=== PATIENT | female | born 1990 | race Asian ===

== ENCOUNTER 2017-07-31 10:51 | Inpatient (IN) | payer SELFPAY ==
[~2017-07-31] VITALS: Ht 167 cm; Wt 72.6 kg
[2017-08-01] MEDS ORDERED: PNV1TABL8 PO (00:18)
[2017-08-01] MEDS ORDERED: IBUPROFEN 800 MG TAB PO PRN (00:20)
[2017-08-01] MEDS ORDERED: OXYTOCIN 20 UNITS in LACTATED RINGERS 1,000 ML IV SCH (00:45)
[2017-08-01] MEDS ORDERED: LACTATED RINGERS 1,000 ML IV SCH (00:45)
[2017-08-01] MEDS ORDERED: OXYTOCIN 10 UNITS/ML VIAL IM SCH (01:00)
[2017-08-01 01:05] LABS: BASOPHILS # (AUTO) 0.1 K/uL (0.00-0.22); BASOPHILS % (AUTO) 1.1 % (0.0-2.0); EOSINOPHILS # (AUTO) 0.1 K/uL (0-0.4); EOSINOPHILS % (AUTO) 0.9 % (0.0-4.0); HEMATOCRIT 32.6 % (36-48); HEMOGLOBIN 10.7 g/dL (12.0-16.0); LYMPHOCYTES # (AUTO) 1.7 K/uL (2.5-16.5); LYMPHOCYTES % (AUTO) 21.5 % (20.5-51.1); MEAN CORPUSCULAR HEMOGLOBIN 29 pg (27-31); MEAN CORPUSCULAR HGB CONC 33 g/dL (33-37); MEAN CORPUSCULAR VOLUME 88 fL (80-94); MONOCYTES # (AUTO) 0.8 K/uL (0.8-1.0); MONOCYTES % (AUTO) 9.7 % (1.7-9.3); NEUTROPHILS # (AUTO) 5.3 K/uL (1.8-7.7); NEUTROPHILS % (AUTO) 66.8 % (42.2-75.2); PLATELET COUNT (AUTO) 192 K/uL (140-450); RED CELL DISTRIBUTION WIDTH 13.8 % (11.6-13.7)
[2017-08-01 01:19] LABS: APPEARANCE,URINE CLEAR (CLEAR); BILIRUBIN,URINE NEGATIVE (NEGATIVE); BLOOD, URINE TRACE-L (NEGATIVE); COLOR,URINE YELLOW (YELLOW); LEUKOCYTE ESTERASE ,URINE 1+ (NEGATIVE); NITRITE, URINE NEGATIVE (NEGATIVE); PH,URINE 6.5 (5.0-9.0); UGLUCOSE NEGATIVE (NEGATIVE)
[2017-08-01] MEDS ORDERED: MISOPROSTOL 25 MCG TAB ONE ×2 (01:21→04:12)
[2017-08-01 01:25] LABS: ALBUMIN 2.6 g/dL (3.4-5.0); ANION GAP 15.8 (8-16); CARBON DIOXIDE 22.6 mmol/L (21-32); CREATININE 0.6 mg/dL (0.6-1.3); POTASSIUM 3.4 mmol/L (3.5-5.1); TOTAL BILIRUBIN 0.3 mg/dL (0.0-1.0)
[2017-08-01 01:31] LABS: RBC,URINE 0-5 (RARE) /HPF (0-5)
[2017-08-01] MEDS ORDERED: MISOPROSTOL 25 MCG TAB PO SCH (04:00)
[2017-08-01] MEDS ORDERED: ROPIVACAINE 0.2%/NS PREMIX 250 ML EPI ONE (06:47)
[2017-08-01] MEDS ORDERED: TERBUTALINE 1 MG/ML VIAL SUBQ ONE (11:33)
[2017-08-01] MEDS ORDERED: OXYTOCIN 10 UNITS/ML VIAL ONE (11:37)
[2017-08-01] MEDS ORDERED: METHYLERGONOVINE 0.2 MG/ML AMP IM PRN (11:40)
[2017-08-01] MEDS ORDERED: MEASLES, MUMPS, AND RUBELLA 1 VIAL SQVAC PRN (11:40)
[2017-08-01] MEDS ORDERED: BENZOCAINE/MENTHOL 20%-0.5% 60 GM CAN TP PRN (11:40)
[2017-08-01] MEDS ORDERED: SODIUM PHOSPHATE 118 ML ENEM RC PRN (11:40)
[2017-08-01] MEDS ORDERED: HYDROcodone/APAP 5/325 MG 1 TAB TAB PO PRN ×2 (11:40)
[2017-08-01] MEDS ORDERED: TERBUTALINE 1 MG/ML VIAL SUBQ SCH (11:40)
[2017-08-01] MEDS ORDERED: oxyCODONE/APAP 5/325 MG 1 TAB TAB PO PRN (11:40)
[2017-08-01] MEDS ORDERED: TEMAZEPAM 15 MG CAP PO PRN (11:40)
[2017-08-01] MEDS ORDERED: DOCUSATE SOD/SENNA 50/8.6 MG 1 TAB PO SCH (21:00)
[2017-08-01] MEDS: IBUPROFEN 800 MG TAB PO PRN (21:03)
[2017-08-02 06:03] LABS: HEMATOCRIT 25.5 % (36-48); HEMOGLOBIN 8.5 g/dL (12.0-16.0)
--- NOTE | 2017-08-02 09:50 | NUR ---
PATIENT HAS BEEN SCREENED AND CATEGORIZED LOW NUTRITION RISK. PATIENT WILL BE SEEN WITHIN 7 DAYS OF ADMISSION. 08/07/[address]
[2017-08-02] MEDS ORDERED: INFLUENZA VIRUS VACCINE QUAD 0.5 ML SYR IMVAC SCH (12:00)
[2017-08-02] MEDS: IBUPROFEN 800 MG TAB PO PRN (12:47)
[2017-08-03] MEDS: IBUPROFEN 800 MG TAB PO PRN (08:00)
[2017-08-03 13:35] LABS: RAPID PLASMA REAGIN NON-REACTIVE (Non Reactiv)
== END 2017-08-03 11:50 | disposition home or self-care (01) | DRG 775 ==
LOC: MLD 08-01 00:05 → MFCC 08-01 14:00
PROVIDERS: ADMIT Obstetrics & Gynecology; ATTEND Obstetrics & Gynecology
PROC: 10D07Z6 Extraction of Products of Conception, Vacuum, Via Natural or Artificial Opening (ICD-10-PCS; principal; 2017-08-01)
PROC: 3E0P7VZ Introduction of Hormone into Female Reproductive, Via Natural or Artificial Opening (ICD-10-PCS; 2017-08-01)
PROC: 3E0P3VZ Introduction of Hormone into Female Reproductive, Percutaneous Approach (ICD-10-PCS; 2017-08-01)
PROC: 0W8NXZZ Division of Female Perineum, External Approach (ICD-10-PCS; 2017-08-01)
PROC: 00HU33Z Insertion of Infusion Device into Spinal Canal, Percutaneous Approach (ICD-10-PCS; 2017-08-01)
PROC: 3E0R3BZ Introduction of Anesthetic Agent into Spinal Canal, Percutaneous Approach (ICD-10-PCS; 2017-08-01)
PROC: 3E0234Z Introduction of Serum, Toxoid and Vaccine into Muscle, Percutaneous Approach (ICD-10-PCS; 2017-08-02)
PROC: 3E0234Z Introduction of Serum, Toxoid and Vaccine into Muscle, Percutaneous Approach (ICD-10-PCS; 2017-08-03)
DX: O48.0 Post-term pregnancy (principal); Z23 Encounter for immunization; Z3A.40 40 weeks gestation of pregnancy; Z37.0 Single live birth
CPT/HCPCS: 36415; 59200; 80053; 81001; 85018; 85025; 86592; 86886; 86900; 86901; 87086; 90658; 90707; J2590; J2795; J3105; J7120